=== PATIENT | female | born 1995 | race Two or more races ===

== ENCOUNTER 2019-03-15 07:46 | Emergency (ER) | payer SELFPAY ==
[~2019-03-15] VITALS: Ht 172.7 cm; Wt 62.0 kg
[2019-03-15 07:55] VITALS: BP 105/58
--- NOTE | 2019-03-15 08:51 | NUR ---
Mikey adams in EDM - 03/15/19 at 0906 by SAMMIE PT SPIT UP APPROX 1/2 DECADRON MD HERNANDO AWARE.
--- NOTE | 2019-03-15 09:07 | NUR ---
PT TO RETURN TO [facility] FOR DETOX, MEDICALLY CLEAR
== END 2019-03-15 09:05 | disposition home or self-care (01) ==
LOC: ED 08:59
DX: R20.2 Paresthesia of skin (principal)
CPT/HCPCS: 99283